=== PATIENT | female | born 1960 | race African-American/Black ===

== ENCOUNTER 2017-12-02 22:55 | Inpatient (IN) | payer OTHER ==
[2017-12-02 23:15] VITALS: BMI 29.0
[2017-12-03] MEDS ORDERED: ACETAMINOPHEN 325 MG TABLET (FP) PO ONE (01:23)
[2017-12-03] MEDS ORDERED: ACETAMINOPHEN 325 MG TABLET (FP) ONE (01:46)
--- NOTE | 2017-12-03 02:27 | PDOC ---
History of Present Illness - General Chief Complaint: Cold Symptoms Stated Complaint: COLD SYMPTOMS Time Seen by Provider: 12/03/17 01:12 History Source: Patient Exam Limitations: No Limitations - History of Present Illness Initial Comments: 12/03/17 02:25 The patient is a 57F with a PMH of HTN who presents to the ER with 2 days of flu -like symptoms. The patient states that she has a cough, fevers/chills, sore throat, headache, myalgias, and nausea for 2 days. She was taking care of her grandson 2 days ago who had the flu. She denies any CP, SOB, vomiting, diarrhea , constipation, leg swelling. Past History - Past Medical History Allergies/Adverse Reactions: Allergies Allergy/AdvReac Type Severity Reaction Status Date / Time No Known Allergies Allergy Verified 12/02/17 23:11 Home Medications: Ambulatory Orders Amlodipine Besylate 10 mg PO DAILY 12/03/17 Cefuroxime Axetil [Ceftin -] 500 mg PO Q12H #14 tablet 12/05/17 Loratadine [Claritin -] 10 mg PO DAILY tablet 12/05/17 Oseltamivir Phosphate [Tamiflu -] 75 mg PO BID #4 capsule 12/05/17 COPD: No HTN: Yes - Immunization History Immunization Up to Date: Yes - Suicide/Smoking/Psychosocial Hx Smoking History: Never smoked Hx Alcohol Use: No Drug/Substance Use Hx: No Substance Use Type: None Review of Systems - Review of Systems Able to Perform ROS?: Yes Comments:: 12/03/17 02:27 GENERAL/CONSTITUTIONAL: Positive for fever and chills. No weakness. HEAD, EYES, EARS, NOSE AND THROAT: Positive for sore throat. No change in vision. No ear pain or discharge. CARDIOVASCULAR: No chest pain, palpitations, or lightheadedness. RESPIRATORY: Positive for cough. No wheezing, shortness of breath, or hemoptysis. GASTROINTESTINAL: No nausea, vomiting, diarrhea, constipation, or abdominal pain. GENITOURINARY: No dysuria, frequency, hematuria, or change in urination. MUSCULOSKELETAL: No joint or muscle swelling or pain. No neck or back pain. SKIN: No rash or lesions. NEUROLOGIC: No headache, numbness, tingling, weakness, loss of consciousness, or change in strength/sensation. ENDOCRINE: No increased thirst. No abnormal weight change. HEMATOLOGIC/LYMPHATIC: No anemia, easy bleeding, or history of blood clots. ALLERGIC/IMMUNOLOGIC: No hives or skin allergy. Is the patient limited Polish proficient: No *Physical Exam - Vital Signs Last Vital Signs Temp Pulse Resp BP Pulse Ox 101 F H 116 H 18 166/98 99 12/02/17 23:12 12/02/17 23:12 12/02/17 23:12 12/02/17 23:12 12/02/17 23:12 - Physical Exam Comments: 12/03/17 02:30 GENERAL: Well developed, well nourished. Awake and alert. No acute distress. HEENT: Normocephalic, atraumatic. Hearing grossly normal. Moist mucous membranes. PERRLA, EOMI. No conjunctival pallor. Sclera are non-icteric. Oropharynx is erythematous. NECK: Supple. Full ROM. No JVD. CARDIOVASCULAR: Regular rate and rhythm. No murmurs, rubs, or gallops. PULMONARY: No evidence of respiratory distress. Decreased lung sounds in LL lobe. No wheezing, rales or rhonchi. ABDOMINAL: Soft. Non-tender. Non-distended. No rebound or guarding. GENITOURINARY: No CVA tenderness bilaterally. MUSCULOSKELETAL: Normal range of motion at all joints. No bony deformities or tenderness. EXTREMITIES: No cyanosis. No clubbing. No edema. No calf tenderness. SKIN: Warm and dry. Normal capillary refill. No rashes. No jaundice. NEUROLOGICAL: Alert, awake, appropriate. Cranial nerves 2-12 intact. Normal speech. Gait is normal without ataxia. PSYCHIATRIC: Cooperative. Good eye contact. Appropriate mood and affect. ED Treatment Course - LABORATORY CBC & Chemistry Diagram: 12/03/17 06:30 12/03/17 06:30 - RADIOLOGY Radiology Studies Ordered: Category Date Time Status CHEST PA & LAT [RAD] Stat Radiology 12/03/17 01:24 Taken - Medications Given in the ED: ED Medications Discontinued Medications Generic Name Dose Route Start Last Admin Trade Name Freq PRN Reason Stop Dose Admin Acetaminophen 650 mg 12/03/17 01:23 12/03/17 02:00 Tylenol - PO 12/03/17 01:24 650 mg ONCE ONE Administration Medical Decision Making - Medical Decision Making 12/03/17 05:29 The patient is a 57F with a PMH of HTN who presents with flu like symptoms and was found to have a lower lobe PNA in the retrocardiac space on preliminary read of XR. Will admit for observation for complicated flu/pna presentation. Dr. Guillaume has accepted admission for med-surg bed. *DC/Admit/Observation/Transfer Diagnosis at time of Disposition: Pneumonia Qualifiers: Pneumonia type: due to unspecified organism Laterality: unspecified laterality Lung location: lower lobe of lung Qualified Code(s): J18.1 - Lobar pneumonia, unspecified organism - Discharge Dispostion Disposition: HOME Condition at time of disposition: Stable Admit: Yes - Prescriptions - Referrals - Patient Instructions - Post Discharge Activity
[2017-12-03 03:49] LABS: BASO % 1.3 % (0-2.0); EOS % 2.7 % (0-4.5); HEMOGLOBIN 11.5 GM/dL (10.7-15.3); LYMPH % 21.1 % (8-40); MCH 25.4 pg (25.7-33.7); MCHC 32.8 g/dl (32.0-36.0); MEAN CELL VOLUME 77.6 fl (80-96); MEAN PLT VOLUME 8.1 fl (7.5-11.1); MONO % 17.4 % (3.8-10.2); NEUT % 57.5 % (42.8-82.8); PLATELET COUNT 244 K/MM3 (134-434); RBC 4.52 M/mm3 (3.60-5.2); RDW 15.2 % (11.6-15.6); WHITE BLOOD COUNT 5.2 K/mm3 (4.0-10.0)
[2017-12-03 03:58] LABS: VENOUS PH 7.47 (7.32-7.42); VENOUS PO2 72.8 mmHg (28-48)
[2017-12-03 04:08] LABS: INR 1.1 (0.82-1.09); PROTHROMBIN TIME (PATIENT) 12.4 SEC (9.98-11.88)
[2017-12-03 04:11] LABS: ACTIVATED PTT 33.3 SECONDS (26.9-34.4)
[2017-12-03 04:12] LABS: ALBUMIN 3.4 g/dl (3.4-5.0); ALK PHOS 73 U/L (45-117); ANION GAP 8 (8-16); BILIRUBIN,TOTAL 0.5 mg/dL (0.2-1.0); BLOOD UREA NITROGEN 10 mg/dL (7-18); CHLORIDE 107 mmol/L (98-107); CO2 25 mmol/L (21-32); CREATININE 0.7 mg/dL (0.55-1.02); GLUCOSE,RANDOM 99 mg/dL (74-106); POTASSIUM 3.8 mmol/L (3.5-5.1); SGOT/AST 15 U/L (15-37); SGPT/ALT 19 U/L (12-78); SODIUM 140 mmol/L (136-145); TOT PROT 6.7 g/dl (6.4-8.2)
--- NOTE | 2017-12-03 05:38 | PN ---
Teaching Attending Note Name of Resident: Annie Lua ATTENDING PHYSICIAN STATEMENT I saw and evaluated the patient. I reviewed the resident's note and discussed the case with the resident. I agree with the resident's findings and plan as documented. SUBJECTIVE: 57 F with pmhx. of HTN who presents with fever, chills, body aches, sore throat , nausea and headache. Notes She has been having a productive cough with sputum. Denies any chest pain, pressure or shortness of breath. No current headache. OBJECTIVE: Physical: VS: Vital Signs Period Temp Pulse Resp BP Sys/Amin Pulse Ox Last 24 Hr 101 F 116 18 166/98 99 GEN: NAD, Resting in bed, AA0X3 HEENT: NCAT, PERRL, throat without erythema or exudates CARD: RRR S1, S2 RESP: Decreased breath sounds at bases ABD: BSx4, NTD to palpation EXT: - C/C/E CBCD WBC 5.2 K/mm3 (4.0-10.0) 12/03/17 03:33 RBC 4.52 M/mm3 (3.60-5.2) 12/03/17 03:33 Hgb 11.5 GM/dL (10.7-15.3) 12/03/17 03:33 Hct 35.0 % (32.4-45.2) 12/03/17 03:33 MCV 77.6 fl (80-96) L 12/03/17 03:33 MCHC 32.8 g/dl (32.0-36.0) 12/03/17 03:33 RDW 15.2 % (11.6-15.6) 12/03/17 03:33 Plt Count 244 K/MM3 (134-434) 12/03/17 03:33 MPV 8.1 fl (7.5-11.1) 12/03/17 03:33 CMP Sodium 140 mmol/L (136-145) 12/03/17 03:33 Potassium 3.8 mmol/L (3.5-5.1) 12/03/17 03:33 Chloride 107 mmol/L (98-107) 12/03/17 03:33 Carbon Dioxide 25 mmol/L (21-32) 12/03/17 03:33 Anion Gap 8 (8-16) 12/03/17 03:33 BUN 10 mg/dL (7-18) 12/03/17 03:33 Creatinine 0.7 mg/dL (0.55-1.02) 12/03/17 03:33 Creat Clearance w eGFR > 60 (>60) 12/03/17 03:33 Random Glucose 99 mg/dL (74-106) 12/03/17 03:33 Calcium 8.0 mg/dL (8.5-10.1) L 12/03/17 03:33 Total Bilirubin 0.5 mg/dL (0.2-1.0) 12/03/17 03:33 AST 15 U/L (15-37) 12/03/17 03:33 ALT 19 U/L (12-78) 12/03/17 03:33 Alkaline Phosphatase 73 U/L (45-117) 12/03/17 03:33 Total Protein 6.7 g/dl (6.4-8.2) 12/03/17 03:33 Albumin 3.4 g/dl (3.4-5.0) 12/03/17 03:33 CARDIAC ENZYMES Creatine Kinase 108 IU/L (26-192) 12/03/17 03:33 Troponin I 0.05 ng/ml (0.00-0.05) 12/03/17 03:33 CXR- ? Early infilterates [employer]. Base ASSESSMENT AND PLAN: 57 F with pmhx. of HTN who presents with fever, chills, body aches, sore throat , nausea and headache, being admitted for Sepsis secondary to flu/pneumonia 1.) Sepsis - Possible Flu with overlying pneumonia - Amalia-Flu - Ceftriaxone/Azithro - IVF - Repeat LA - Chinchilla Cx - Urine Ags 2.) HTN - C/W Home meds 3.) Dvt PPx - SCDs Place in Obs
--- NOTE | 2017-12-03 05:48 | HP ---
CHIEF COMPLAINT: sore throat, myalgia PCP: HISTORY OF PRESENT ILLNESS: 57 y/o F with PMH HTN who presents to ED with URI sx for the past two days. As per pt, on Thursday, she developed dry cough with sore throat. During this time, pt has had a constant, dull temporal headache, myalgia, nausea (with 1 episode of NBNB emesis), as well as poor appetite. Her sx were not alleviated by either alleve at home or Tylenol while in the ED. Pt also endorses SOB, subjective chills, as well as increased urinary frequency when she coughs. History positive for two sick contacts- grandson, and daughter in law with flu. Denies chest or abdominal pain, or changes in bowel function. Patient did not receive her flu shot this year. ER course was notable for: (1) Temperature 101F (2) HR 116 (3) Influenza A and B (-) Recent Travel: none PAST MEDICAL HISTORY: HTN PAST SURGICAL HISTORY: hysterectomy- 2005 Social History: Smoking: intermittently as a teenager Alcohol: denies Drugs: denies Family History: mother- passed from [place], kidney failure 2/2 HTN. father- cirrhosis. extensive family hx of depression Allergies No Known Allergies Allergy (Verified 12/02/17 23:11) HOME MEDICATIONS: Home Medications Medication Instructions Recorded Loratadine [Claritin -] 10 mg PO DAILY #30 tablet 08/09/16 Olopatadine HCl [Pataday] 1 ml OU DAILY #1 drops 08/09/16 Azithromycin [Zithromax 250mg 250 mg PO UTDICT #6 tab 12/03/17 Tablets -] Oseltamivir Phosphate [Tamiflu -] 75 mg PO BID #10 capsule 12/03/17 REVIEW OF SYSTEMS CONSTITUTIONAL: +chills, myalgia, loss of appetite Absent: fever, diaphoresis, generalized weakness, malaise, loss of appetite, weight change HEENT: +throat pain Absent: rhinorrhea, nasal congestion, throat swelling, difficulty swallowing, mouth swelling, ear pain, eye pain, visual changes CARDIOVASCULAR: Absent: chest pain, syncope, palpitations, irregular heart rate, lightheadedness , peripheral edema RESPIRATORY: +cough, SOB Absent: dyspnea with exertion, orthopnea, wheezing, stridor, hemoptysis GASTROINTESTINAL: +nausea Absent: abdominal pain, abdominal distension, vomiting, diarrhea, constipation, melena, hematochezia GENITOURINARY: +urinary frequency Absent: dysuria, urgency, hesitancy, hematuria, flank pain, genital pain MUSCULOSKELETAL: Absent: myalgia, arthralgia, joint swelling, back pain, neck pain SKIN: Absent: rash, itching, pallor HEMATOLOGIC/IMMUNOLOGIC: Absent: easy bleeding, easy bruising, lymphadenopathy, frequent infections ENDOCRINE: Absent: unexplained weight gain, unexplained weight loss, heat intolerance, cold intolerance NEUROLOGIC: Absent: headache, focal weakness or paresthesias, dizziness, unsteady gait, seizure, mental status changes, bladder or bowel incontinence PSYCHIATRIC: Absent: anxiety, depression, suicidal or homicidal ideation, hallucinations. PHYSICAL EXAMINATION Vital Signs - 24 hr 12/02/17 23:12 Temperature 101 F H Pulse Rate 116 H Respiratory 18 Rate Blood Pressure 166/98 O2 Sat by Pulse 99 Oximetry (%) GENERAL: Resting comfortably. Awake, alert, and fully oriented, in no acute distress. HEAD: Normal with no signs of trauma. EYES: Pupils equal, round and reactive to light, extraocular movements intact, sclera anicteric, conjunctiva clear. EARS, NOSE, THROAT: Ears normal, nares patent, oropharynx clear without exudates. Moist mucous membranes. NECK: Normal range of motion, supple LUNGS: decreased breath sounds b/l. mild wheezing appreciated RLL. no accessory m. usage. HEART: Regular rate and rhythm, normal S1 and S2 without murmur, rub or gallop. ABDOMEN: Soft, obese, nontender, not distended, normoactive bowel sounds, no guarding, no rebound, no masses LOWER EXTREMITIES: 2+ posterior tibial pulses, warm, well-perfused. No calf tenderness. No peripheral edema. NEUROLOGICAL: Cranial nerves II-XII intact. Laboratory Results 12/03/17 12/03/17 12/03/17 03:33 03:33 03:33 WBC 5.2 RBC 4.52 Hgb 11.5 Hct 35.0 MCV 77.6 L MCH 25.4 L MCHC 32.8 RDW 15.2 Plt Count 244 MPV 8.1 Neutrophils % 57.5 Lymphocytes % 21.1 Monocytes % 17.4 H Eosinophils % 2.7 Basophils % 1.3 PT with INR 12.40 H INR 1.10 PTT (Actin FS) 33.3 VBG pH 7.47 H POC VBG pCO2 34.0 L POC VBG pO2 72.8 H Mixed VBG HCO3 24.4 Sodium Antibody Screen 12/03/17 12/03/17 12/03/17 03:33 03:33 03:33 Mixed VBG HCO3 Sodium 140 Potassium 3.8 Chloride 107 Carbon Dioxide 25 Anion Gap 8 BUN 10 Creatinine 0.7 Creat Clearance w eGFR > 60 Random Glucose 99 Lactic Acid 0.7 Calcium 8.0 L Total Bilirubin 0.5 AST 15 ALT 19 Alkaline Phosphatase 73 Creatine Kinase 108 Troponin I 0.05 Total Protein 6.7 Albumin 3.4 Blood Type O POSITIVE Antibody Screen Negative Microbiology 12/03/17 03:33 Nasopharyngeal Swab Influenza Types A,B Antigen (FELICITAS) - Final 12/03/17 03:33 Nasopharyngeal Swab - Final CXR -possible infiltrate RLL. official read pending ASSESSMENT/PLAN: 57 y/o F with PMH HTN who presents to ED with URI sx for the past two days. Pt admitted to obs for sepsis 2/2 possible URI, CAP, ?Flu. #Sepsis 2/2 possible URI, ?CAP, ?Flu -pt febrile 101F, tachy 116HR -though Flu (-), possible for first test to be negative, while pt still with flu (+) sick contacts -Started on Tamiflu 75mg PO qd -Ceftriaxone 1g IVPB qd and Azithro 500mg PO qd to cover for CAP. Pt's QTc elevated 482 will need stat EKG recheck -F/u blood cx -F/u urine Ag #HTN-currently controlled -will need med rec, pt unsure of home HTN meds #PPX SCD's #F/E/N IV NS 100 cc/hr Monitor electrolytes Sodium controlled diet #Dispo Observation for cont'd monitoring Visit type - Emergency Visit Emergency Visit: Yes ED Registration Date: 12/03/17 Care time: The patient presented to the Emergency Department on the above date and was hospitalized for further evaluation of their emergent condition. - New Patient This patient is new to me today: Yes Date on this admission: 12/03/17 - Critical Care Critical Care patient: No
[2017-12-03] MEDS ORDERED: OSELTAMIVIR PHOSPHATE 75 MG CAPSULE PO SCH (06:00)
[2017-12-03] MEDS ORDERED: AZITHROMYCIN 500 MG TABLET PO SCH (06:00)
[2017-12-03] MEDS ORDERED: OSELTAMIVIR PHOSPHATE 75 MG CAPSULE ONE (06:22)
[2017-12-03] MEDS ORDERED: AZITHROMYCIN 500 MG TABLET ONE (06:22)
[2017-12-03] MEDS: SODIUM CHLORIDE 1,000 ML IV SCH ×2 (06:23→17:12)
[2017-12-03 07:24] LABS: BASO % 0.7 % (0-2.0); EOS % 3.5 % (0-4.5); HEMATOCRIT 36.9 % (32.4-45.2); HEMOGLOBIN 11.9 GM/dL (10.7-15.3); MCH 25.3 pg (25.7-33.7); MCHC 32.3 g/dl (32.0-36.0); MEAN CELL VOLUME 78.5 fl (80-96); MEAN PLT VOLUME 8.5 fl (7.5-11.1); NEUT % 53.8 % (42.8-82.8); PLATELET COUNT 262 K/MM3 (134-434); RDW 15.6 % (11.6-15.6); WHITE BLOOD COUNT 4.6 K/mm3 (4.0-10.0)
[2017-12-03 07:35] LABS: URINE APPEARANCE CLEAR; URINE BILIRUBIN NEGATIVE (NEGATIVE); URINE BLOOD NEGATIVE (NEGATIVE); URINE COLOR LTYELLOW; URINE GLUCOSE (UA) 1+ (NEGATIVE); URINE KETONE NEGATIVE (NEGATIVE); URINE LEUK ESTERASE NEGATIVE (NEGATIVE); URINE NITRITE NEGATIVE (NEGATIVE); URINE UROBILINOGEN NEGATIVE mg/dL (0.2-1.0)
[2017-12-03 07:43] LABS: URINE PROTEIN 1+ (NEGATIVE)
[2017-12-03 07:45] LABS: EPI CELLS RARE /HPF (FEW); URINE BACTERIA FEW /hpf (NONE SEEN); URINE HYALINE CAST 1 /lpf; URINE MUCUS RARE
[2017-12-03 08:17] LABS: ANION GAP 7 (8-16); BLOOD UREA NITROGEN 11 mg/dL (7-18); CALCIUM 8.2 mg/dL (8.5-10.1); CHLORIDE 107 mmol/L (98-107); CO2 26 mmol/L (21-32); CREATININE 0.8 mg/dL (0.55-1.02); GLUCOSE,RANDOM 90 mg/dL (74-106); SODIUM 140 mmol/L (136-145)
[2017-12-03] MEDS ORDERED: FLU VACCINE QUAD 60 MCG/0.5 ML (MDV 17-18) IM ONE (08:33)
[2017-12-03] MEDS: CEFTRIAXONE 1 G/50 ML PREMIX 50 ML IVPB SCH (09:25)
[2017-12-03] MEDS: LORATADINE 10 MG TABLET PO SCH (09:28)
[2017-12-03] MEDS ORDERED: OLOPATADINE HCL OU SCH (10:00)
--- NOTE | 2017-12-03 10:58 | EKG ---
Test Reason : Blood Pressure : / mmHG Vent. Rate : 101 BPM Atrial Rate : 101 BPM P-R Int : 154 ms QRS Dur : 092 ms QT Int : 372 ms P-R-T Axes : 039 035 039 degrees QTc Int : 482 ms SINUS TACHYCARDIA POSSIBLE LEFT ATRIAL ENLARGEMENT BORDERLINE ECG WHEN COMPARED WITH ECG OF 06-MAY-2005 13:44, NO SIGNIFICANT CHANGE WAS FOUND Confirmed by LUCIUS MCNALLY MD ([id number]) on 12/03/2017 10:58:01 AM Referred By: Confirmed By:LUCIUS MCNALLY MD
--- NOTE | 2017-12-03 15:16 | CON.ID ---
Consult Consult Specialty:: infectious disease Referred by:: hospitalist Reason for Consultation:: fever - History of Present Illness Chief Complaint: fever, cough History of Present Illness: 57 year old female, her son and baby were staying with her since Thursday because her daughtermars had the flu, on Thursday the baby became ill and was brought to the ED where he was diagnosed with influenza A. On Thursday she started feeling unwell by Thursday she had a bad headache, fever, vomiting, and cough sore throat with dry cough no flu vaccine this year history of HTN, meds ran out +subjective SOB with ambulation cxray bibasilar infiltrates - History Source History Provided By: Patient, Family Member Limitations to Obtaining History: No Limitations - Past Medical History Cardio/Vascular: Yes: HTN ...: No - Past Surgical History Past Surgical History: Yes: Hysterectomy - Alcohol/Substance Use Hx Alcohol Use: No - Smoking History Smoking history: Never smoked Have you smoked in the past 12 months: No - Social History Usual Living Arrangement: With Spouse ADL: Independent Occupation: administration History of Recent Travel: No Home Medications - Allergies Allergies/Adverse Reactions: Allergies Allergy/AdvReac Type Severity Reaction Status Date / Time No Known Allergies Allergy Verified 12/02/17 23:11 - Home Medications Home Medications: Ambulatory Orders Loratadine [Claritin -] 10 mg PO DAILY #30 tablet 08/09/16 Olopatadine HCl [Pataday] 1 ml OU DAILY #1 drops 08/09/16 Azithromycin [Zithromax 250mg Tablets -] 250 mg PO UTDICT #6 tab 12/03/17 Oseltamivir Phosphate [Tamiflu -] 75 mg PO BID #10 capsule 12/03/17 Family Disease History - Family Disease History Family History: Unremarkable Review of Systems - Review of Systems Constitutional: reports: Chills, Fever, Loss of Appetite, Weakness Eyes: reports: No Symptoms Cardiovascular: denies: Chest Pain Respiratory: reports: Cough, SOB on Exertion Gastrointestinal: reports: Diarrhea, Vomiting. denies: Abdominal Pain Genitourinary: reports: No Symptoms Neurological: reports: Headache Physical Exam Vital Signs: Vital Signs Temperature 100.1 F H 12/03/17 14:52 Pulse Rate 60 12/03/17 14:52 Respiratory Rate 20 12/03/17 08:00 Blood Pressure 146/90 12/03/17 14:52 O2 Sat by Pulse Oximetry (%) 96 12/03/17 08:41 Constitutional: Yes: Well Nourished, No Distress, Calm Eyes: Yes: Conjunctiva Clear, EOM Intact HENT: Yes: Atraumatic, Normocephalic. No: Pharyngeal Erythema, Thrush, Tonsillar Exudate Neck: Yes: Supple, Trachea Midline Cardiovascular: Yes: Regular Rate and Rhythm Respiratory: Yes: Regular, Other (crackles at bases) Gastrointestinal: Yes: Normal Bowel Sounds, Soft ...Rectal Exam: Yes: Deferred Extremities: Yes: WNL Edema: No Psychiatric: Yes: Alert, Oriented Labs: CBC, BMP 12/03/17 06:30 12/03/17 06:30 Imaging - Results Chest X-ray: Report Reviewed, Image Reviewed (bibasilar infiltrtes) Problem List - Problems (1) Influenza Code(s): J11.1 - FLU DUE TO UNIDENTIFIED INFLUENZA VIRUS W OTH RESP MANIFEST (2) Pneumonia Code(s): J18.9 - PNEUMONIA, UNSPECIFIED ORGANISM Qualifiers: Pneumonia type: due to unspecified organism Laterality: unspecified laterality Lung location: lower lobe of lung Qualified Code(s): J18.1 - Lobar pneumonia, unspecified organism Assessment/Plan agree that even with negative screen she should be treated for influenza would continue rocephin for CAP droplet isolation f/u cultures f/u legionella urinary antigen
--- NOTE | 2017-12-03 16:03 | PN ---
<Alexandro Oro - Last Filed: 12/03/17 16:21> Physical Exam: SUBJECTIVE: Patient seen and examined at bedside. she states she still has some fevers, chills, and body aches. Denies cough. OBJECTIVE: Vital Signs Period Temp Pulse Resp BP Sys/Amin Pulse Ox Last 24 Hr 99.8 F-101 F 60-116 18-20 146-166/90-98 96-99 GENERAL: Resting comfortably. Awake, alert, and fully oriented, in no acute distress. HEAD: Normal with no signs of trauma. EYES: Pupils equal, round and reactive to light, extraocular movements intact, sclera anicteric, conjunctiva clear. EARS, NOSE, THROAT: Ears normal, nares patent, oropharynx clear without exudates. Moist mucous membranes. NECK: Normal range of motion, supple LUNGS: noted decreased breath sounds bilaterally. HEART: Regular rate and rhythm, normal S1 and S2 without murmur, rub or gallop. ABDOMEN: Soft, obese, nontender, not distended, normoactive bowel sounds, no guarding, no rebound, no masses LOWER EXTREMITIES: 2+ posterior tibial pulses, warm, well-perfused. No calf tenderness. No peripheral edema. NEUROLOGICAL: Cranial nerves II-XII intact. Laboratory Results - last 24 hr 12/03/17 12/03/17 12/03/17 03:33 03:33 03:33 WBC 5.2 RBC 4.52 Hgb 11.5 Hct 35.0 MCV 77.6 L MCH 25.4 L MCHC 32.8 RDW 15.2 Plt Count 244 MPV 8.1 Neutrophils % 57.5 Lymphocytes % 21.1 Monocytes % 17.4 H Eosinophils % 2.7 Basophils % 1.3 PT with INR 12.40 H INR 1.10 PTT (Actin FS) 33.3 VBG pH 7.47 H POC VBG pCO2 34.0 L POC VBG pO2 72.8 H Mixed VBG HCO3 24.4 Sodium Potassium Chloride Carbon Dioxide Anion Gap BUN Creatinine Creat Clearance w eGFR Random Glucose Lactic Acid Calcium Total Bilirubin AST ALT Alkaline Phosphatase Creatine Kinase Troponin I Total Protein Albumin Urine Color Urine Appearance Urine pH Ur Specific [place] Urine Protein Urine Glucose (UA) Urine Ketones Urine Blood Urine Nitrite Urine Bilirubin Urine Urobilinogen Ur Leukocyte Esterase Urine WBC (Auto) Urine RBC (Auto) Ur Epithelial Cells Urine Bacteria Hyaline Casts Urine Mucus Blood Type Antibody Screen 12/03/17 12/03/17 12/03/17 03:33 03:33 03:33 WBC RBC Hgb Hct MCV MCH MCHC RDW Plt Count MPV Neutrophils % Lymphocytes % Monocytes % Eosinophils % Basophils % PT with INR INR PTT (Actin FS) VBG pH POC VBG pCO2 POC VBG pO2 Mixed VBG HCO3 Sodium 140 Potassium 3.8 Chloride 107 Carbon Dioxide 25 Anion Gap 8 BUN 10 Creatinine 0.7 Creat Clearance w eGFR > 60 Random Glucose 99 Lactic Acid 0.7 Calcium 8.0 L Total Bilirubin 0.5 AST 15 ALT 19 Alkaline Phosphatase 73 Creatine Kinase 108 Troponin I 0.05 Total Protein 6.7 Albumin 3.4 Urine Color Urine Appearance Urine pH Ur Specific [place] Urine Protein Urine Glucose (UA) Urine Ketones Urine Blood Urine Nitrite Urine Bilirubin Urine Urobilinogen Ur Leukocyte Esterase Urine WBC (Auto) Urine RBC (Auto) Ur Epithelial Cells Urine Bacteria Hyaline Casts Urine Mucus Blood Type O POSITIVE Antibody Screen Negative 12/03/17 12/03/17 12/03/17 06:30 06:30 06:30 WBC 4.6 RBC 4.70 Hgb 11.9 Hct 36.9 MCV 78.5 L MCH 25.3 L MCHC 32.3 RDW 15.6 Plt Count 262 MPV 8.5 Neutrophils % 53.8 Lymphocytes % 23.0 Monocytes % 19.0 H Eosinophils % 3.5 Basophils % 0.7 PT with INR INR PTT (Actin FS) VBG pH POC VBG pCO2 POC VBG pO2 Mixed VBG HCO3 Sodium Potassium Chloride Carbon Dioxide Anion Gap BUN Creatinine Creat Clearance w eGFR Random Glucose Lactic Acid 0.7 Calcium Total Bilirubin AST ALT Alkaline Phosphatase Creatine Kinase Troponin I Total Protein Albumin Urine Color Ltyellow Urine Appearance Clear Urine pH 6.0 Ur Specific [place] 1.014 Urine Protein 1+ H Urine Glucose (UA) 1+ H Urine Ketones Negative Urine Blood Negative Urine Nitrite Negative Urine Bilirubin Negative Urine Urobilinogen Negative Ur Leukocyte Esterase Negative Urine WBC (Auto) 5 Urine RBC (Auto) <1 Ur Epithelial Cells Rare Urine Bacteria Few Hyaline Casts 1 Urine Mucus Rare Blood Type Antibody Screen 12/03/17 12/03/17 06:30 12:30 WBC RBC Hgb Hct MCV MCH MCHC RDW Plt Count MPV Neutrophils % Lymphocytes % Monocytes % Eosinophils % Basophils % PT with INR INR PTT (Actin FS) VBG pH POC VBG pCO2 POC VBG pO2 Mixed VBG HCO3 Sodium 140 Potassium 4.0 Chloride 107 Carbon Dioxide 26 Anion Gap 7 L BUN 11 Creatinine 0.8 Creat Clearance w eGFR Random Glucose 90 Lactic Acid 1.0 Calcium 8.2 L Total Bilirubin AST ALT Alkaline Phosphatase Creatine Kinase Troponin I Total Protein Albumin Urine Color Urine Appearance Urine pH Ur Specific [place] Urine Protein Urine Glucose (UA) Urine Ketones Urine Blood Urine Nitrite Urine Bilirubin Urine Urobilinogen Ur Leukocyte Esterase Urine WBC (Auto) Urine RBC (Auto) Ur Epithelial Cells Urine Bacteria Hyaline Casts Urine Mucus Blood Type Antibody Screen Active Medications Generic Name Dose Route Start Last Admin Trade Name Freq PRN Reason Stop Dose Admin CEFTRIAXONE 1 G/50 ML PREMIX 50 mls @ 100 mls/hr 12/03/17 10:00 12/03/17 09: 25 Ceftriaxone 1 Gm-D5w Bag IVPB 100 mls/hr DAILY JUVE Administration Sodium Chloride 1,000 mls @ 100 mls/hr 12/03/17 06:00 12/03/17 06:23 Normal Saline - IV 100 mls/hr ASDIR JUVE Administration Loratadine 10 mg 12/03/17 10:00 12/03/17 09:28 Claritin - PO 10 mg DAILY JUVE Administration Non-Formulary Medication 1 ml 12/03/17 10:00 Olopatadine Hcl [Pataday] OU DAILY JUVE Oseltamivir Phosphate 75 mg 12/03/17 22:00 Tamiflu - PO 12/08/17 21:59 BID JUVE ASSESSMENT/PLAN: 57 y/o F with PMH HTN who presents to ED admitted to the hospital for for sepsis 2/2 influenza vs influenza #Sepsis 2/2 Influenza vs Community Acquired Pneumonia -patient improved and is now afebrile -influenza negative, still treat with Tamiflu 75 PO BID (day 2) for 5 days -Continue Ceftriaxone 1g IVPB qd -f/u cultures, legionella antigen #Hypertension: stable -amlodipine 10mg (home dose) #Prophylaxis -SCD's #FEN -IV NS 100 cc/hr -Monitor electrolytes -Sodium controlled diet #Disposition -Observation for cont'd monitoring Visit type - Emergency Visit Emergency Visit: No - New Patient This patient is new to me today: No - Critical Care Critical Care patient: No <Ella Rosen - Last Filed: 12/03/17 19:13> Physical Exam: Patient seen and examined with the resident. Patient was seen by ID as per ID to continue Rocephin for acute bibasilar infiltrate and continue Tamiflu since her grandchild had the flu and she is c/o having Flu like symptoms.
[2017-12-03] MEDS: OSELTAMIVIR PHOSPHATE 75 MG CAPSULE PO SCH (22:05)
[2017-12-04] MEDS: SODIUM CHLORIDE 1,000 ML IV SCH ×2 (06:36→14:22)
[2017-12-04] MEDS: ACETAMINOPHEN 325 MG TABLET (FP) PO PRN ×2 (06:53→21:42)
--- NOTE | 2017-12-04 09:55 | PN ---
<Alexandro Oro - Last Filed: 12/04/17 09:56> Physical Exam: SUBJECTIVE: Patient seen and examined at bedside. Patient states that she has a mild headache but states that she has not had fevers or chills. No overnight events. OBJECTIVE: Vital Signs Period Temp Pulse Resp BP Sys/Amin Pulse Ox Last 24 Hr 98.6 F-100.1 F 60-87 20-20 126-146/70-98 96 GENERAL: Resting comfortably. Awake, alert, and fully oriented, in no acute distress. HEAD: Normal with no signs of trauma. EYES: Pupils equal, round and reactive to light, extraocular movements intact, sclera anicteric, conjunctiva clear. EARS, NOSE, THROAT: Ears normal, nares patent, oropharynx clear without exudates. Moist mucous membranes. NECK: Normal range of motion, supple LUNGS: noted decreased breath sounds bilaterally. HEART: Regular rate and rhythm, normal S1 and S2 without murmur, rub or gallop. ABDOMEN: Soft, obese, nontender, not distended, normoactive bowel sounds, no guarding, no rebound, no masses LOWER EXTREMITIES: 2+ posterior tibial pulses, warm, well-perfused. No calf tenderness. No peripheral edema. NEUROLOGICAL: Cranial nerves II-XII intact. Laboratory Results - last 24 hr 12/03/17 12:30 Lactic Acid 1.0 Active Medications Generic Name Dose Route Start Last Admin Trade Name Freq PRN Reason Stop Dose Admin Acetaminophen 650 mg 12/04/17 06:49 12/04/17 06:53 Tylenol - PO 650 mg Q6H PRN Administration FEVER Amlodipine Besylate 10 mg 12/04/17 10:00 Norvasc - PO DAILY JUVE CEFTRIAXONE 1 G/50 ML PREMIX 50 mls @ 100 mls/hr 12/03/17 10:00 12/03/17 09: 25 Ceftriaxone 1 Gm-D5w Bag IVPB 100 mls/hr DAILY JUVE Administration Sodium Chloride 1,000 mls @ 100 mls/hr 12/03/17 06:00 12/04/17 06:36 Normal Saline - IV 100 mls/hr ASDIR JUVE Administration Loratadine 10 mg 12/03/17 10:00 12/03/17 09:28 Claritin - PO 10 mg DAILY JUVE Administration Non-Formulary Medication 1 ml 12/03/17 10:00 Olopatadine Hcl [Pataday] OU DAILY [facility] Oseltamivir Phosphate 75 mg 12/03/17 22:00 12/03/17 22:05 Tamiflu - PO 12/08/17 21:59 75 mg BID JUVE Administration ASSESSMENT/PLAN: 57 y/o F with PMH HTN who presents to ED admitted to the hospital for for sepsis 2/2 influenza vs influenza #Sepsis 2/2 Influenza vs Community Acquired Pneumonia -patient improved and is now afebrile -influenza negative, still treat with Tamiflu 75 PO BID (day 3) for 5 days -Continue Ceftriaxone 1g IVPB qd day 2 -f/u cultures, legionella antigen #Hypertension: stable -amlodipine 10mg (home dose) #Prophylaxis -SCD's #FEN -No standing fluids -Monitor electrolytes -Sodium controlled diet #Disposition -continue to monitor on med surg Visit type - Emergency Visit Emergency Visit: No - New Patient This patient is new to me today: No - Critical Care Critical Care patient: No <Ella Rosen - Last Filed: 12/04/17 18:20> Physical Exam: Patient seen and examined with the resident. Patient is comfortable, doing better. discussed with ID , will order CXR for am , possible discharge in am.
[2017-12-04] MEDS: OSELTAMIVIR PHOSPHATE 75 MG CAPSULE PO SCH ×2 (10:19→21:43)
[2017-12-04] MEDS: amLODIPine BESYLATE 10 MG TABLET (FP) PO SCH (10:19)
[2017-12-04] MEDS: CEFTRIAXONE 1 G/50 ML PREMIX 50 ML IVPB SCH (10:19)
[2017-12-04] MEDS: LORATADINE 10 MG TABLET PO SCH (10:19)
--- NOTE | 2017-12-04 15:30 | PN ---
Progress Note (short form) - Note Progress Note: feels better today no vomiting no nausea still with cough Vital Signs Period Temp Pulse Resp BP Sys/Amin Pulse Ox Last 24 Hr 98.6 F-98.9 F 72-87 20-20 126-144/70-98 96 cor-rrr lungs clear abd soft,nt ext no edema CBC, BMP 12/03/17 06:30 12/03/17 06:30 Microbiology 12/03/17 06:30 Urine - Urine Clean Catch Urine Culture - Final 12/03/17 03:33 Blood - Peripheral Venous Blood Culture - Preliminary NO GROWTH OBTAINED AFTER 24 HOURS, INCUBATION TO CONTINUE FOR 4 DAYS. 12/03/17 03:33 Blood - Peripheral Venous Blood Culture - Preliminary NO GROWTH OBTAINED AFTER 24 HOURS, INCUBATION TO CONTINUE FOR 4 DAYS. 12/03/17 03:33 Nasopharyngeal Swab Influenza Types A,B Antigen (FELICITAS) - Final 12/03/17 03:33 Nasopharyngeal Swab - Final a/p doing well influenza finish tamiflu 5 days repeat cxray today if stable can switch to ceftin in am Problem List - Problems (1) Influenza Code(s): J11.1 - FLU DUE TO UNIDENTIFIED INFLUENZA VIRUS W OTH RESP MANIFEST (2) Pneumonia Code(s): J18.9 - PNEUMONIA, UNSPECIFIED ORGANISM Qualifiers: Pneumonia type: due to unspecified organism Laterality: unspecified laterality Lung location: lower lobe of lung Qualified Code(s): J18.1 - Lobar pneumonia, unspecified organism
[2017-12-05] MEDS: SODIUM CHLORIDE 1,000 ML IV SCH (06:30)
[2017-12-05] MEDS: ACETAMINOPHEN 325 MG TABLET (FP) PO PRN (06:31)
[2017-12-05] MEDS: CEFTRIAXONE 1 G/50 ML PREMIX 50 ML IVPB SCH (10:12)
[2017-12-05] MEDS: LORATADINE 10 MG TABLET PO SCH (10:14)
[2017-12-05] MEDS: amLODIPine BESYLATE 10 MG TABLET (FP) PO SCH (10:14)
[2017-12-05] MEDS: OSELTAMIVIR PHOSPHATE 75 MG CAPSULE PO SCH (10:14)
--- NOTE | 2017-12-05 10:49 | PN ---
Progress Note, Physician Chief Complaint: ID Subjective improvement - Current Medication List Current Medications: Active Medications Acetaminophen (Tylenol -) 650 mg PO Q6H PRN PRN Reason: FEVER Last Admin: 12/05/17 06:31 Dose: 650 mg Amlodipine Besylate (Norvasc -) 10 mg PO DAILY [facility] Last Admin: 12/05/17 10:14 Dose: 10 mg CEFTRIAXONE 1 G/50 ML PREMIX (Ceftriaxone 1 Gm-D5w Bag) 50 mls @ 100 mls/hr IVPB DAILY [facility] Last Admin: 12/05/17 10:12 Dose: 100 mls/hr Sodium Chloride (Normal Saline -) 1,000 mls @ 100 mls/hr IV ASDIR [facility] Last Admin: 12/05/17 06:30 Dose: 100 mls/hr Loratadine (Claritin -) 10 mg PO DAILY [facility] Last Admin: 12/05/17 10:14 Dose: 10 mg Non-Formulary Medication (Olopatadine Hcl [Pataday]) 1 ml OU DAILY [facility] Oseltamivir Phosphate (Tamiflu -) 75 mg PO BID [facility] Stop: 12/08/17 21:59 Last Admin: 12/05/17 10:14 Dose: 75 mg - Objective Vital Signs: Vital Signs Temperature 98.5 F 12/05/17 09:58 Pulse Rate 82 12/05/17 09:58 Respiratory Rate 18 12/05/17 09:58 Blood Pressure 156/99 12/05/17 09:58 O2 Sat by Pulse Oximetry (%) 96 12/04/17 21:00 Neck: Yes: WNL, Supple Cardiovascular: Yes: S1, S2 Respiratory: Yes: WNL, Regular, CTA Bilaterally. No: Rhonchi Gastrointestinal: Yes: Soft. No: Tenderness Labs: CBC, BMP 12/03/17 06:30 12/03/17 06:30 INR, PTT INR 1.10 (0.82-1.09) 12/03/17 03:33 Assessment/Plan Microbiology 12/03/17 06:30 Urine - Urine Clean Catch Urine Culture - Final 12/03/17 03:33 Nasopharyngeal Swab Influenza Types A,B Antigen (FELICITAS) - Final 12/03/17 03:33 Nasopharyngeal Swab - Final 12/03/17 03:33 Blood - Peripheral Venous Blood Culture - Preliminary NO GROWTH OBTAINED AFTER 48 HOURS, INCUBATION TO CONTINUE FOR 3 DAYS. 12/03/17 03:33 Blood - Peripheral Venous Blood Culture - Preliminary NO GROWTH OBTAINED AFTER 48 HOURS, INCUBATION TO CONTINUE FOR 3 DAYS. Laboratory Tests 12/03/17 12/03/17 06:30 06:30 WBC 4.6 Hgb 11.9 Plt Count 262 BUN 11 Creatinine 0.8 Assessment Consider discharge as per Dr Babcock recommendations
[2017-12-05 14:09] VITALS: BP 149/85; PULSE 85; TEMP 98.7
--- NOTE | 2017-12-05 16:15 | DS ---
Physical Exam: SUBJECTIVE: Patient seen and examined Patient feels better with no acute distress. wants to go home. OBJECTIVE: Vital Signs Temperature 98.7 F 12/05/17 14:07 Pulse Rate 85 12/05/17 14:07 Respiratory Rate 18 12/05/17 09:58 Blood Pressure 149/85 12/05/17 14:07 O2 Sat by Pulse Oximetry (%) 96 12/04/17 21:00 PHYSICAL EXAM GENERAL: The patient is awake, alert, and fully oriented, in no acute distress. HEAD: Normal with no signs of trauma. EYES: PERRL, extraocular movements intact, sclera anicteric, conjunctiva clear. ENT: Ears normal, oropharynx clear without exudates, moist mucous membranes. NECK: Trachea midline, full range of motion, supple. LUNGS: Breath sounds equal, clear to auscultation bilaterally, no wheezes, no crackles, no accessory muscle use. HEART: Regular rate and rhythm, S1, S2 without murmur, rub or gallop. ABDOMEN: Soft, nontender, nondistended, normoactive bowel sounds, no guarding, no rebound, no hepatosplenomegaly, no masses. EXTREMITIES: 2+ pulses, warm, well-perfused, no edema. NEUROLOGICAL: Cranial nerves II through XII grossly intact. Normal speech, gait not observed. PSYCH: Normal mood, normal affect. SKIN: Warm, dry, normal turgor, no rashes or lesions noted. LABS CBCD WBC 4.6 K/mm3 (4.0-10.0) 12/03/17 06:30 RBC 4.70 M/mm3 (3.60-5.2) 12/03/17 06:30 Hgb 11.9 GM/dL (10.7-15.3) 12/03/17 06:30 Hct 36.9 % (32.4-45.2) 12/03/17 06:30 MCV 78.5 fl (80-96) L 12/03/17 06:30 MCHC 32.3 g/dl (32.0-36.0) 12/03/17 06:30 RDW 15.6 % (11.6-15.6) 12/03/17 06:30 Plt Count 262 K/MM3 (134-434) 12/03/17 06:30 MPV 8.5 fl (7.5-11.1) 12/03/17 06:30 CMP Sodium 140 mmol/L (136-145) 12/03/17 06:30 Potassium 4.0 mmol/L (3.5-5.1) 12/03/17 06:30 Chloride 107 mmol/L (98-107) 12/03/17 06:30 Carbon Dioxide 26 mmol/L (21-32) 12/03/17 06:30 Anion Gap 7 (8-16) L 12/03/17 06:30 BUN 11 mg/dL (7-18) 12/03/17 06:30 Creatinine 0.8 mg/dL (0.55-1.02) 12/03/17 06:30 Creat Clearance w eGFR > 60 (>60) 12/03/17 03:33 Random Glucose 90 mg/dL (74-106) 12/03/17 06:30 Calcium 8.2 mg/dL (8.5-10.1) L 12/03/17 06:30 Total Bilirubin 0.5 mg/dL (0.2-1.0) 12/03/17 03:33 AST 15 U/L (15-37) 12/03/17 03:33 ALT 19 U/L (12-78) 12/03/17 03:33 Alkaline Phosphatase 73 U/L (45-117) 12/03/17 03:33 Total Protein 6.7 g/dl (6.4-8.2) 12/03/17 03:33 Albumin 3.4 g/dl (3.4-5.0) 12/03/17 03:33 CARDIAC ENZYMES Creatine Kinase 108 IU/L (26-192) 12/03/17 03:33 Troponin I 0.05 ng/ml (0.00-0.05) 12/03/17 03:33 Current Medications Generic Name Dose Route Start Last Admin Trade Name Freq PRN Reason Stop Dose Admin Acetaminophen 650 mg 12/04/17 06:49 12/05/17 06:31 Tylenol - PO 650 mg Q6H PRN Administration FEVER Amlodipine Besylate 10 mg 12/04/17 10:00 12/05/17 10:14 Norvasc - PO 10 mg DAILY JUVE Administration CEFTRIAXONE 1 G/50 ML PREMIX 50 mls @ 100 mls/hr 12/03/17 10:00 12/05/17 10: 12 Ceftriaxone 1 Gm-D5w Bag IVPB 100 mls/hr DAILY JUVE Administration Sodium Chloride 1,000 mls @ 100 mls/hr 12/03/17 06:00 12/05/17 06:30 Normal Saline - IV 100 mls/hr ASDIR JUVE Administration Loratadine 10 mg 12/03/17 10:00 12/05/17 10:14 Claritin - PO 10 mg DAILY JUVE Administration Non-Formulary Medication 1 ml 12/03/17 10:00 Olopatadine Hcl [Pataday] OU DAILY JUVE Oseltamivir Phosphate 75 mg 12/03/17 22:00 12/05/17 10:14 Tamiflu - PO 12/08/17 21:59 75 mg BID JUVE Administration Home Medications Medication Instructions Recorded Amlodipine Besylate 10 mg PO DAILY 12/03/17 HOSPITAL COURSE: Date of Admission:12/03/17 Date of Discharge: 12/05/17 Patient is a 57 y/o F with PMHx HTN who presents to ED and was admitted to the hospital for sepsis and was found to have influenza. #Sepsis 2/2 Influenza vs Community Acquired Pneumonia # Acute Pneumonia was placed on Rocephin as per ID , will be discharged home with 7 more day of Oral ceftin 500mg po BID #Hypertension: continue amlodipine 10mg (home dose) will discharge the patient home today. Minutes to complete discharge: 35 Discharge Summary Reason For Visit: PNEUMONIA Current Active Problems Influenza (Acute) Pneumonia (Acute) Condition: Stable - Instructions Diet, Activity, Other Instructions: You were admitted to the hospital for the treatment of influenza (flu) and pneumonia. You were on both Tamiflu and Ceftin 500mg po bid for 7 more days to complete, antibiotics for pneumonia while in the hospital. Medical Recommendations: Please continue Tamiflu for another 2 days at home - take 75mg twice a day Please continue antibiotics Ceftin 500mg po bid x 7 days at home - take another 7 days Please make an appointment with your primary care physician within 1 week of discharge and Follow with Infectious disease doctor if needed. If you experience high fevers, chills, nausea, vomiting, shortness of breath, chest pain, please return to the emergency room immediately. Referrals: Naif Sheriff MD [Staff Physician] - Ari Sotelo MD [Staff Physician] - Disposition: HOME - Home Medications Comprehensive Discharge Medication List: Ambulatory Orders Amlodipine Besylate 10 mg PO DAILY 12/03/17 This patient is new to me today: No Emergency Visit: Yes ED Registration Date: 12/03/17 Care time: The patient presented to the Emergency Department on the above date and was hospitalized for further evaluation of their emergent condition. Critical Care patient: No - Discharge Referral Referred to [facility] Med P.[facility] No
== END 2017-12-05 18:56 | disposition home or self-care (01) | DRG 871 ==
LOC: JER 22:55 → JERBED 12-03 05:30 → UNDOADMOB 12-03 05:39 → JERBED 12-03 05:39 → J6S 12-03 07:26 → OBSVTOIN 12-03 16:02 → J6S 12-03 19:40
PROVIDERS: ADMIT Internal Medicine; ATTEND Internal Medicine
DX: A41.89 Other specified sepsis (principal); J09.X1 Influenza due to identified novel influenza A virus with pneumonia; I10 Essential (primary) hypertension; Z87.891 Personal history of nicotine dependence
CPT/HCPCS: 36415; 71046-TC-FY; 80048; 80053; 81003; 81015; 82550; 82803; 83605; 84484; 85025; 85610; 85730; 86850; 86900; 86901; 87040; 87086; 87804; 93005; 93010; 99283-25; G0378